=== PATIENT | female | born 1985 ===

== ENCOUNTER 2018-08-12 05:53 | Day surgery (SDC) | payer OTHER ==
[~2018-08-12 05:53] MED LIST: FARXIGA5 MG PO; MEGESTROL ACETA40 MG PO; METFORMIN HCL500 MG PO
[2018-08-12] MEDS ORDERED: DICLOFENAC SODI50 MG PO (09:33)
== END 2018-08-12 10:55 | disposition home or self-care (01) ==
LOC: CIR.AMB 05:53
DX: N93.8 Other specified abnormal uterine and vaginal bleeding (principal)